=== PATIENT | female | born 1970 | race Asian ===

== ENCOUNTER 2019-03-30 15:35 | Emergency (ER) | payer OTHER ==
[~2019-03-30] VITALS: Ht 154.9 cm; Wt 62.1 kg
--- NOTE | 2019-03-30 16:35 | NUR ---
PATIENT WAS SEEN BY MD FOR C/O TOE INJURY/PAIN. XRAYS DONE. JAMMIE TAPE APPLIED. DC, RX AND FOLLOW UP INSTRUCTIONS GIVEN AND EXPLAINED TO PATIENT WHO STATES SHE UNDERSTANDS ALL INSTRUCTIONS.
== END 2019-03-30 16:37 | disposition home or self-care (01) ==
LOC: ER 15:41
DX: S92.522A Displaced fracture of middle phalanx of left lesser toe(s), initial encounter for closed fracture (principal); W22.8XXA Striking against or struck by other objects, initial encounter; Y93.89 Activity, other specified; Y92.89 Other specified places as the place of occurrence of the external cause; Y99.8 Other external cause status
CPT/HCPCS: 73660; A4663